=== PATIENT | female | born 1970 | race Caucasian/White ===

== ENCOUNTER → 2016-10-09 | Outpatient (CLI) | payer BC ==
--- NOTE | 2016-10-09 18:37 | CT ---
EXAMINATION TYPE: CT abdomen pelvis w con DATE OF EXAM: 10/09/2016 6:31 PM COMPARISON: NONE HISTORY: Pt states of abdominal pain after eating. 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 CT DLP: 776.8 mGycm CONTRAST: CT scan of the abdomen and pelvis is performed with Oral Contrast and with IV Contrast, patient injec tami with 100 mL of Omnipaque 300. FINDINGS: LUNG BASES-: No visible nodule. No infiltrate. LIVER/GB: No calcified gallstones. No space occupying hepatic lesion. Biliary tree is of normal ca liber. PANCREAS: No inflammation. No distinct mass. SPLEEN: No splenic enlargement. No lesion seen. ADRENALS: No nodule. No thickening. KIDNEYS/BLADDER: 3 mm calculus within the proximal left ureter resulting in mild to moderate hydronep hrosis. Left renal edema and perinephric stranding. Superimposed infection is difficult to exclude. A trophic changes of the right kidney. Subcentimeter cyst right kidney. BOWEL: Normal appendix. Normal bowel caliber. No inflammation. The operative changes sigmoid colon. GENITAL ORGANS: 4.4 cm left ovarian cyst. Septated cystic lesion right ovary measuring 6.1 cm. Consi chino ultrasound correlation. LYMPH NODES: No greater than 1cm abdominal or pelvic lymph nodes are appreciated. AORTA: No significant abnormality. OSSEOUS STRUCTURES: No significant abnormality is seen. OTHER: No significant additional abnormality is seen. IMPRESSION: 1. 3 mm calculus within the proximal left ureter resulting in mild to moderate hydronephrosis. Left r enal edema and perinephric stranding. 2. Bilateral ovarian cystic lesions as discussed above.
== END | disposition home or self-care (01) ==
LOC: RADCTMAIN 15:53
PROVIDERS: ATTEND Family Medicine
DX: N13.2 Hydronephrosis with renal and ureteral calculous obstruction (principal); N04.9 Nephrotic syndrome with unspecified morphologic changes; N83.202 Unspecified ovarian cyst, left side; N83.201 Unspecified ovarian cyst, right side
CPT/HCPCS: 74177; Q9967

== ENCOUNTER → 2016-10-17 | Outpatient (CLI) | payer BC ==
--- NOTE | 2016-10-17 11:46 | XR ---
EXAMINATION TYPE: XR KUB DATE OF EXAM ORDERED: 10/17/2016 11:13 AM HISTORY: N20.1 stone. COMPARISON: None. FINDINGS: The entire abdomen is not included on this study. There is a previous bowel surgery within the pelvis. There is a phlebolith in the right hemipelvis. No other unusual calcifications are seen. IMPRESSION: 1. NO ACUTE INTRA-ABDOMINAL ABNORMALITY. 2. POSTSURGICAL CHANGE.
== END | disposition home or self-care (01) ==
LOC: RADXRMAIN 10:58
PROVIDERS: ATTEND Physician Assistant
DX: N20.1 Calculus of ureter (principal); Z98.890 Other specified postprocedural states
CPT/HCPCS: 74000

== ENCOUNTER → 2016-12-16 | Outpatient (CLI) | payer BC ==
--- NOTE | 2016-12-16 17:47 | US ---
EXAMINATION TYPE: US kidneys/renal and bladder DATE OF EXAM: 12/16/2016 5:06 PM COMPARISON: CT CLINICAL HISTORY: N20.1 Calculus or ureter, R93.4 Hx [place]. EXAM MEASUREMENTS: Right Kidney: 9.5 x 3.1 x 3.8 cm Left Kidney: 11.1 x 6.6 x 6.7 cm Right Kidney: atrophic, subcentimeter cyst reported on CT not seen. Left Kidney: No hydronephrosis or masses seen Bladder: wnl Bilateral Jets seen: Yes incidental finding of gallstone There is no evidence for hydronephrosis at this point in time. No nephrolithiasis is seen. No jam s are identified. The urinary bladder is anechoic. Bilateral ureteral jets are seen. IMPRESSION: The right kidney is smaller than the left consistent with atrophy. There is cortical thinning. There is no hydronephrosis. There are bilateral ureteral jets and no evidence of obstruction. Gallstone is noted. There appears to be clearing of the mild left-sided hydronephrosis compared to old CT scan of 3-17.
== END | disposition home or self-care (01) ==
LOC: RADUSWWP 16:27
PROVIDERS: ATTEND Urology
DX: K80.20 Calculus of gallbladder without cholecystitis without obstruction (principal); N13.2 Hydronephrosis with renal and ureteral calculous obstruction
CPT/HCPCS: 76770

== ENCOUNTER → 2017-09-12 | Outpatient (CLI) | payer BC ==
--- NOTE | 2017-09-14 10:20 | MM ---
Reason for exam: screening (asymptomatic). Last mammogram was performed 1 year and 1 month ago. History: Family history of endometrial cancer in paternal grandmother at age 50. Took hormonal contraceptives for 6 months. Physical Findings: A clinical breast exam by your physician is recommended on an annual basis and results should be correlated with mammographic findings. MG 3D Screening Mammo W/Cad Bilateral CC and MLO view(s) were taken. Prior study comparison: August 01, 2016, bilateral MG 3d screening mammo w/cad. May 29, 2015, bilateral MG screening mammo w/o cad. The breast tissue is heterogeneously dense. This may lower the sensitivity of mammography. There is no discrete abnormality. ASSESSMENT: Negative, BI-RAD 1 RECOMMENDATION: Routine screening mammogram of both breasts in 1 year.
== END | disposition home or self-care (01) ==
LOC: RADMAMWWP 08:20
PROVIDERS: ATTEND Obstetrics & Gynecology
DX: Z12.31 Encounter for screening mammogram for malignant neoplasm of breast (principal)
CPT/HCPCS: 77063; 77067

== ENCOUNTER → 2023-01-15 | Outpatient (CLI) | payer BC ==
--- NOTE | 2023-01-16 07:23 | MM ---
Reason for Exam: Screening (asymptomatic). Last mammogram was performed 5 year(s) and 4 month(s) ago. Patient History: Menarche at age 14. First Full-Term at age 26. Postmenopausal. Hormonal Contraceptives for 6 months. Paternal grandmother had ovarian cancer, age 90. Paternal grandmother had breast cancer, right, age 50. Paternal grandmother had breast cancer, left, age 55. Risk Values: Katharine 5 year model risk: 1.1%. NCI Lifetime model risk: 9.7%. Prior Study Comparison: 05/29/2015 Bilateral Screening Mammogram, [facility]. 08/01/2016 Bilateral Screening Mammogram, [facility]. 09/12/2017 Bilateral Screening Mammogram, [facility]. Tissue Density: There are scattered fibroglandular densities. Findings: Analyzed By CAD. There is no suspicious group of microcalcifications or new suspicious mass in either breast. Overall Assessment: Negative, BI-RAD 1 Management: Screening Mammogram of both breasts in [address] [facility] will attempt to contact patient to return for supplemental views and ultrasound if indicated. Patient should continue monthly self-breast exams. A clinical breast exam by your physician is recommended on an annual basis. This exam should not preclude additional follow-up of suspicious palpable abnormalities. Note on Katharine scores and lifetime risk: 1. A Katharine score greater than 3% is considered moderate risk. If this is the case, consider specialist referral to assess eligibility for a risk reducing agent. 2. If overall lifetime risk for the development of breast cancer is 20% or higher, the patient may qualify for future screening with alternating mammogram and breast MRI. Electronically signed and approved by: Foreign Carmona DO
== END | disposition home or self-care (01) ==
LOC: RADMAMWWP 16:01
PROVIDERS: ATTEND Family Medicine
DX: Z12.31 Encounter for screening mammogram for malignant neoplasm of breast (principal); Z78.0 Asymptomatic menopausal state; Z80.3 Family history of malignant neoplasm of breast
CPT/HCPCS: 77063; 77067

== ENCOUNTER → 2024-11-21 | Outpatient (CLI) | payer OTHER ==
--- NOTE | 2024-11-21 10:13 | MM ---
Reason for Exam: Screening (asymptomatic). Last mammogram was performed 1 year(s) and 10 month(s) ago. Patient History: Menarche at age 14. First Full-Term at age 26. Postmenopausal. Hormonal Contraceptives for 6 months. Paternal grandmother had ovarian cancer, age 90. Paternal grandmother had breast cancer, right, age 50. Paternal grandmother had breast cancer, left, age 55. Risk Values: Katharine 5 year model risk: 1.2%. NCI Lifetime model risk: 9.4%. Prior Study Comparison: 08/01/2016 Bilateral Screening Mammogram, [facility]. 09/12/2017 Bilateral Screening Mammogram, [facility]. 01/15/2023 Bilateral MG 3D screening mammo w/cad, [facility]. Tissue Density: The breasts are heterogeneously dense, which may obscure small masses. Findings: Analyzed By CAD. There is no suspicious new group of microcalcifications or new suspicious mass in either breast. Overall Assessment: Negative, BI-RAD 1 Management: Screening Mammogram of both breasts in 1 year. . Patient should continue monthly self-breast exams. A clinical breast exam by your physician is recommended on an annual basis. This exam should not preclude additional follow-up of suspicious palpable abnormalities. Note on Katharine scores and lifetime risk: 1. A Katharine score greater than 3% is considered moderate risk. If this is the case, consider specialist referral to assess eligibility for a risk reducing agent. 2. If overall lifetime risk for the development of breast cancer is 20% or higher, the patient may qualify for future screening with alternating mammogram and breast MRI. [facility], , 11/21/2024 10:10 AM. Electronically signed and approved by: Brody Garrett M.D.
== END | disposition home or self-care (01) ==
LOC: RADMAMWWP 09:18
PROVIDERS: ATTEND Obstetrics & Gynecology
DX: Z12.31 Encounter for screening mammogram for malignant neoplasm of breast (principal); R92.333 Mammographic heterogeneous density, bilateral breasts; Z78.0 Asymptomatic menopausal state; Z80.3 Family history of malignant neoplasm of breast; Z92.0 Personal history of contraception
CPT/HCPCS: 77063; 77067